=== PATIENT | male | born 1970 | race Caucasian/White ===

== ENCOUNTER 2018-06-07 17:11 | Emergency (ER) | payer SELFPAY ==
[~2018-06-07] VITALS: Ht 193 cm; Wt 113.4 kg
[2018-06-07 17:23] VITALS: BP 157/85
[2018-06-07] MEDS ORDERED: LIDOCAINE WITH 8.4% SOD BICARB 3 ML DISP.SYRIN. INJ ONE (17:45)
[2018-06-07] MEDS ORDERED: NEOMY/BACITR/POLYMYXIN OINT PACKET. TP ONE ×2 (17:45→20:00)
[2018-06-07] MEDS ORDERED: DIPHTH,PERTUSS(ACELL),TET TOX 0.5 ML DISP.SYRIN. VAX IM ONE (17:45)
[2018-06-07] MEDS ORDERED: HYDROcodone/APAP 5/325MG 1 TAB TABLET PO ONE (18:00)
--- NOTE | 2018-06-07 18:31 | RAD ---
PQRS Compliance statement: One or more of the following individualized dose reduction techniques were utilized for this examination: 1. Automated exposure control. 2. Adjustment of the mA and/or kV according to patient size. 3. Use of iterative reconstruction technique. Indication:head injury with LOC TECHNIQUE: CT head without IV contrast COMPARISON:None FINDINGS: No pathologic extra-axial or intra-axial fluid collection. The ventricles and basal cisterns are within normal limits. No acute intracranial bleed. The orbits are within normal limits. Soft tissue injury seen overlying the right zygoma with punctate calcific density likely foreign body. The paranasal sinuses and mastoid air cells are clear. No calvarial fractures. IMPRESSION: 1. No acute intracranial bleed. 2. No calvarial fractures. 3. Soft tissue injury with punctate foreign bodies overlying the right zygoma Electronically signed by: Alvarado Burgess DO (06/07/2018 6:28 PM) [facility]
[2018-06-07] MEDS ORDERED: HYDR-2758 PO (20:07)
[2018-06-07] MEDS ORDERED: CEPH500T PO (20:07)
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
== END 2018-06-07 20:13 | disposition home or self-care (01) ==
LOC: ER 17:11
DX: S05.31XA Ocular laceration without prolapse or loss of intraocular tissue, right eye, initial encounter (principal); S00.81XA Abrasion of other part of head, initial encounter; M54.5 Low back pain; I10 Essential (primary) hypertension; Z90.89 Acquired absence of other organs; Z91.041 Radiographic dye allergy status; Y08.89XA Assault by other specified means, initial encounter; Y93.39 Activity, other involving climbing, rappelling and jumping off; Y92.89 Other specified places as the place of occurrence of the external cause; Y99.8 Other external cause status
CPT/HCPCS: 12013; 70450; 72100; 90471; 90715; 99284

== ENCOUNTER 2018-10-18 14:38 | Observation (INO) | payer SELFPAY ==
[~2018-10-18] VITALS: Ht 193 cm; Wt 112.1 kg
[~2018-10-18 14:38] MED LIST: CEPH500T PO; HYDR-2761 PO
[2018-10-18 15:04] LABS: BASO # 0.1 x10^3/uL (0.0-0.2); BASO % 1 % (0-3); EOS # 0.2 x10^3/uL (0.0-0.7); EOS % 4 % (0-3); HEMATOCRIT 40.9 % (39.0-53.0); HEMOGLOBIN 14.2 g/dL (13.0-17.5); LYMPH # 0.9 x10^3/uL (1.0-4.8); LYMPH % 15 % (24-48); MEAN CORPUSCULAR HEMOGLOBIN 32 pg (25-35); MEAN CORPUSCULAR HGB CONC 35 g/dL (31-37); MEAN CORPUSCULAR VOLUME 93 fL (79-100); MONO # 0.6 x10^3/uL (0.0-1.1); MONO % 10 % (0-9); NEUT # 4.4 x10^3uL (1.8-7.7); NEUT % 70 % (31-73); PLATELET COUNT 225 x10^3/uL (140-400); RED BLOOD COUNT 4.42 x10^6/uL (4.30-5.70); RED CELL DISTRIBUTION WIDTH 15.1 % (11.5-14.5); WHITE BLOOD COUNT 6.2 x10^3/uL (4.0-11.0)
[2018-10-18 15:13] LABS: CALCIUM 8.8 mg/dL (8.5-10.1); CREATININE 0.8 mg/dL (0.7-1.3); GFR 102.7; POTASSIUM 4.3 mmol/L (3.5-5.1)
[2018-10-18 15:16] LABS: PROTHROMBIN TIME PATIENT 11.7 SEC (11.7-14.0)
--- NOTE | 2018-10-18 15:21 | RAD ---
EXAM: Chest, single view. HISTORY: Chest pain. COMPARISON: 09/16/2018 FINDINGS: A frontal view of the chest is obtained. There is no infiltrate, pleural effusion or pneumothorax. The heart is normal in size for portable technique. IMPRESSION: No acute pulmonary finding. Electronically signed by: Mary Kay Ponce MD (10/18/2018 3:17 PM) [facility]
--- NOTE | 2018-10-18 15:32 | EKG ---
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
[2018-10-18] MEDS ORDERED: ONDANSETRON PF 4 MG/2 ML VIAL. IV PRN (16:30)
[2018-10-18] MEDS ORDERED: NITROGLYCERIN SUBLINGUAL 0.4 MG BOTTLE OF 25. SL PRN (16:30)
[2018-10-18] MEDS ORDERED: PHENYTOIN SODIUM EXTENDED 100 MG CAPSULE PO ONE (16:30)
[2018-10-18] MEDS ORDERED: ASPIRIN CHEWABLE 81 MG TABLET. PO ONE (16:30)
[2018-10-18] MEDS ORDERED: MORPHINE SULFATE 4 MG/ML VIAL. IV ONE (16:30)
[2018-10-18] MEDS ORDERED: MORPHINE SULFATE 4 MG/ML VIAL. IV PRN (16:30)
[2018-10-18] MEDS ORDERED: ACETAMINOPHEN 325 MG TABLET. PO PRN (16:30)
[2018-10-18] MEDS ORDERED: NICOTINE 21MG PATCH. TD PRN (16:45)
[2018-10-18] MEDS ORDERED: ACETAMINOPHEN 500 MG TABLET PO PRN (16:45)
[2018-10-18] MEDS ORDERED: GABAPENTIN 300 MG CAPSULE. PO ONE (16:45)
[2018-10-18] MEDS ORDERED: oxyCODONE/APAP 5/325 1 TAB TABLET PO PRN (16:45)
[2018-10-18] MEDS ORDERED: ZOLPIDEM 5 MG TABLET. PO PRN (16:45)
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
[2018-10-18 17:00] VITALS: BP 176/105
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
[2018-10-18 17:06] LABS: PHENY < 0.5 mcg/mL (10.0-20.0)
[2018-10-18 19:50] VITALS: BP 181/93
[2018-10-18] MEDS ORDERED: GABAPENTIN 300 MG CAPSULE. PO SCH (21:00)
--- NOTE | 2018-10-18 22:00 | NUR ---
Paged Dr Noel to clarify observation status. Pt to remain observation at this time per Will monitor.
[2018-10-18] MEDS: GABAPENTIN 300 MG CAPSULE. PO SCH (22:10)
[2018-10-18 22:17] VITALS: BP 151/83
[2018-10-19 01:19] LABS: BARBITURATES NEG (NEG); BENZODIAZEPINES NEG (NEG); CANNABINOIDS NEG (NEG); COCAINE NEG (NEG); METHADONE NEG (NEG); OPIATES POS (NEG); PHENCYCLIDINE NEG (NEG)
[2018-10-19 01:32] LABS: AMPHETAMINE/METHAMPHETAMINE POS (NEG)
[2018-10-19 02:09] VITALS: BP 149/88
[2018-10-19 05:18] LABS: CHOLESTEROL/HDL RATIO 3.7
[2018-10-19 07:00] VITALS: BP 164/89
--- NOTE | 2018-10-19 07:56 | EKG ---
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
[2018-10-19] MEDS: GABAPENTIN 300 MG CAPSULE. PO SCH (08:54)
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
[2018-10-19] MEDS ORDERED: LISINOPRIL 20 MG TABLET PO SCH (09:00)
[2018-10-19] MEDS ORDERED: hydroCHLOROthiazide 12.5 MG CAPSULE PO SCH (09:00)
[2018-10-19 09:04] VITALS: BP 164/89
--- NOTE | 2018-10-19 09:21 | NUR ---
IP: Pt has a hx of + mrsa in thumb and + mrsa screen 09/2015. Pt to be in contact precautions until there are 2 negative mrsa screen and no open wounds.
--- NOTE | 2018-10-19 11:07 | NUR ---
Discharge Note: patient left the unit without notifying staff therefore patient signed AMA paperwork per doctors orders. patient signed and patient given paperwork during morning med pass for the lisinopril and HCTZ which were new to him. patient taken home via [facility] personnel.
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
[2018-10-19] MEDS ORDERED: PHENYTOIN SODIUM EXTENDED 100 MG CAPSULE PO SCH (21:00)
[2018-10-24] MEDS ORDERED: AMLO5TAB7 PO (09:51)
[2018-10-24] MEDS ORDERED: ALBU2.5V8 INH (09:51)
[2018-10-24] MEDS ORDERED: GABA300C18 PO (10:32)
[2018-10-24] MEDS ORDERED: PHEN300C4 PO (10:32)
== END 2018-10-19 11:15 | disposition left against medical advice (07) ==
LOC: ER 14:38 → 2 NORTH 16:20
PROVIDERS: ADMIT Internal Medicine; ATTEND Internal Medicine
DX: I25.10 Atherosclerotic heart disease of native coronary artery without angina pectoris (principal); I10 Essential (primary) hypertension; I25.2 Old myocardial infarction; G40.909 Epilepsy, unspecified, not intractable, without status epilepticus; J44.9 Chronic obstructive pulmonary disease, unspecified; F15.10 Other stimulant abuse, uncomplicated; E78.5 Hyperlipidemia, unspecified; F17.210 Nicotine dependence, cigarettes, uncomplicated; Z91.19 Patient's noncompliance with other medical treatment and regimen; Z90.49 Acquired absence of other specified parts of digestive tract; Z82.49 Family history of ischemic heart disease and other diseases of the circulatory system
CPT/HCPCS: 36415; 71045; 80048; 80061; 80185; 80307; 83880; 84484; 85025; 85610; 85730; 93005; 96374; 99284; G0378; J2270; G0379

== ENCOUNTER 2018-11-01 17:13 | Emergency (ER) | payer SELFPAY ==
[~2018-11-01] VITALS: Ht 193 cm; Wt 122.5 kg
[~2018-11-01 17:13] MED LIST changes: +ALBU2.5V8 INH; +AMLO5TAB7 PO; +GABA300C18 PO; +PHEN300C4 PO
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
[2018-11-01 18:40] LABS: BASO % 1 % (0-3); EOS # 0.3 x10^3/uL (0.0-0.7); EOS % 5 % (0-3); HEMATOCRIT 38.6 % (39.0-53.0); HEMOGLOBIN 13.5 g/dL (13.0-17.5); LYMPH # 1.1 x10^3/uL (1.0-4.8); LYMPH % 20 % (24-48); MEAN CORPUSCULAR HEMOGLOBIN 32 pg (25-35); MEAN CORPUSCULAR HGB CONC 35 g/dL (31-37); MEAN CORPUSCULAR VOLUME 93 fL (79-100); MONO # 0.7 x10^3/uL (0.0-1.1); MONO % 12 % (0-9); NEUT # 3.5 x10^3uL (1.8-7.7); NEUT % 63 % (31-73); PLATELET COUNT 224 x10^3/uL (140-400); RED BLOOD COUNT 4.17 x10^6/uL (4.30-5.70); RED CELL DISTRIBUTION WIDTH 14.5 % (11.5-14.5); WHITE BLOOD COUNT 5.6 x10^3/uL (4.0-11.0)
--- NOTE | 2018-11-01 18:40 | EKG ---
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
[2018-11-01 18:51] LABS: PROTHROMBIN TIME PATIENT 12.5 SEC (11.7-14.0)
[2018-11-01 18:54] LABS: CALCIUM 8.6 mg/dL (8.5-10.1); CREATININE 1.1 mg/dL (0.7-1.3); GFR 71.1; POTASSIUM 4.3 mmol/L (3.5-5.1)
[2018-11-01 19:00] LABS: ALBUMIN 3.3 g/dL (3.4-5.0); ALBUMIN/GLOBULIN RATIO 0.9 (1.0-1.7); MAGNESIUM 1.8 mg/dL (1.8-2.4); TOTAL BILIRUBIN 0.4 mg/dL (0.2-1.0); TOTAL PROTEIN 6.8 g/dL (6.4-8.2)
[2018-11-01 20:01] LABS: BARBITURATES NEG (NEG); BENZODIAZEPINES NEG (NEG); CANNABINOIDS NEG (NEG); COCAINE NEG (NEG); METHADONE NEG (NEG); OPIATES NEG (NEG); PHENCYCLIDINE NEG (NEG)
[2018-11-01 20:02] LABS: AMPHETAMINE/METHAMPHETAMINE POS (NEG)
--- NOTE | 2018-11-01 21:43 | RAD ---
Examination: CHEST PA LATERAL History: ER PATIENT. ATRAUMATIC MIDSTERNAL PAIN. Hx HTN, NO PRIORS Comparison/Correlation: 10/23/2018 portable chest x-ray exam Findings: PA and lateral views of chest were obtained. Heart size and pulmonary vasculature are normal. No infiltrate or significant effusion. Costophrenic angles are not fully included in this may limit assessment. Bony structures are unremarkable for age. Impression: No active disease. Electronically signed by: Yuri Middleton MD (11/01/2018 9:39 PM) [facility]
[2018-11-01] MEDS ORDERED: IBUP-1060 PO (22:03)
[2018-11-01 22:33] VITALS: BP 178/97
--- NOTE | 2018-11-02 05:13 | EKG ---
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
== END 2018-11-01 22:37 | disposition home or self-care (01) ==
LOC: ER 17:13
DX: R07.89 Other chest pain (principal); R06.02 Shortness of breath; R42 Dizziness and giddiness; I10 Essential (primary) hypertension; I25.10 Atherosclerotic heart disease of native coronary artery without angina pectoris; F17.210 Nicotine dependence, cigarettes, uncomplicated; Z90.89 Acquired absence of other organs; Z88.8 Allergy status to other drugs, medicaments and biological substances; Z91.041 Radiographic dye allergy status
CPT/HCPCS: 36415; 71046; 80053; 80307; 82550; 83690; 83735; 83880; 84484; 85025; 85610; 93005; 99284-25

== ENCOUNTER 2019-01-26 20:45 | Observation (INO) | payer SELFPAY ==
[~2019-01-26] VITALS: Ht 182.9 cm; Wt 118.9 kg
[~2019-01-26 20:45] MED LIST changes: +AMLO5TAB10 PO; -AMLO5TAB7 PO; +IBUP-1060 PO
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
[2019-01-26 21:41] LABS: BASO # 0.1 x10^3/uL (0.0-0.2); BASO % 1 % (0-3); EOS # 0.1 x10^3/uL (0.0-0.7); EOS % 1 % (0-3); LYMPH # 1.1 x10^3/uL (1.0-4.8); LYMPH % 15 % (24-48); MEAN CORPUSCULAR HEMOGLOBIN 31 pg (25-35); MEAN CORPUSCULAR HGB CONC 33 g/dL (31-37); MEAN CORPUSCULAR VOLUME 93 fL (79-100); MONO # 0.8 x10^3/uL (0.0-1.1); MONO % 11 % (0-9); NEUT # 5.4 x10^3uL (1.8-7.7); NEUT % 73 % (31-73); PLATELET COUNT 193 x10^3/uL (140-400); RED BLOOD COUNT 4.53 x10^6/uL (4.30-5.70); RED CELL DISTRIBUTION WIDTH 13.6 % (11.5-14.5); WHITE BLOOD COUNT 7.3 x10^3/uL (4.0-11.0)
[2019-01-26 21:52] LABS: CALCIUM 8.8 mg/dL (8.5-10.1); CREATININE 1.1 mg/dL (0.7-1.3); GFR 71.1; POTASSIUM 4.3 mmol/L (3.5-5.1); PROTHROMBIN TIME PATIENT 13.2 SEC (11.7-14.0)
[2019-01-26 21:56] LABS: D-DIMER < 0.27 ug/mlFEU (0.00-0.50)
[2019-01-26 21:58] LABS: ALBUMIN/GLOBULIN RATIO 1.2 (1.0-1.7); TOTAL BILIRUBIN 0.7 mg/dL (0.2-1.0); TOTAL PROTEIN 7.3 g/dL (6.4-8.2)
[2019-01-26] MEDS ORDERED: ASPIRIN CHEWABLE 81 MG TABLET. PO ONE (23:15)
[2019-01-26] MEDS ORDERED: NITROGLYCERIN OINT 1 GM PACKET. TP ONE (23:15)
[2019-01-27 00:58] VITALS: BP 147/73
[2019-01-27] MEDS ORDERED: LISI10TA2 PO (02:27)
[2019-01-27 03:00] VITALS: BP 145/79
[2019-01-27 05:11] LABS: CHOLESTEROL/HDL RATIO 4.5
--- NOTE | 2019-01-27 05:40 | EKG ---
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
[2019-01-27 07:37] VITALS: BP 124/73
--- NOTE | 2019-01-27 07:55 | RAD ---
Single view of the chest. 01/26/2019 9:34 PM Indication: Shortness of breath Comparison: Chest radiograph November 01, 2018 Findings: There is no focal consolidation. There is no pleural effusion or pneumothorax. The cardiomediastinal silhouette and pulmonary vasculature are within normal limits. No acute osseous abnormalities are seen. Impression: No evidence of acute cardiopulmonary process. Electronically signed by: Vick Farooq MD (01/27/2019 7:53 AM) [id number]
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
--- NOTE | 2019-01-27 09:30 | PDOC2 ---
RUDI ROMERO CORN SHREDDER 01/27/19 0930: CARDIAC CONSULT DATE OF CONSULT Date of Consult DATE: 01/27/19 TIME: 09:26 REASON FOR CONSULT Reason for Consult: Chest pain REFERRING PHYSICIAN Referring Physician: Dr. Herndon SOURCE Source: Patient HISTORY OF PRESENT ILLNESS HISTORY OF PRESENT ILLNESS This is a 48 yo female who presented secondary to chest pain. Patient [facility] facility. Was at home playing horseshoes. Began having pain in his central chest. Radiated to his left arm. Describes as pressure and occasionally sharp in nature. Sometimes worse with applying pressure to the chest. Associated with dizziness and nausea. Reports pain has been somewhat constant, although better now. No recent illness/fevers, palpitations, SOA, LE edema, or orthopnea. Was seen by our service earlier this year for similar complaints. Underwent echo, which showed normal LV systolic function. Patient was recommend to have outpatient stress testing, but unfortunately failed to follow up. H/o cocaine and marijuana use, patient reports he has been clean since October. Has not been compliant with any medications for > 1 year. PAST MEDICAL HISTORY Cardiovascular: CAD, HTN Pulmonary: No pertinent hx CENTRAL NERVOUS SYSTEM: Other (no pertinent hx) GI: No pertinent hx Heme/Onc: No pertinent hx Hepatobiliary: Hep A/B/C (C) Psych: No pertinent hx, Schizophrenia Musculoskeletal: Other (no pertinent hx) Rheumatologic: No pertinent hx Infectious disease: No pertinent hx ENT: No pertinent hx Renal/: No pertinent hx Endocrine: No pertinent hx Dermatology: No pertinent hx PAST SURGICAL HISTORY Past Surgical History angioplasty at [facility] 3 years ago-no stent, appendectomy FAMILY HISTORY Family History: Diabetes, Stroke SOCIAL HISTORY Smoke: <1 pack per day ALCOHOL: none Drugs: Marijuana Lives: Roommate (rehab) CURRENT MEDICATIONS CURRENT MEDICATIONS Current Medications Medications (Trade) Dose Ordered Sig/Dahiana Route PRN Reason Start Time Stop Time Status Last Admin Dose Admin Nitroglycerin (Nitro-Bid Oint) 1 inch 1X ONCE TP 01/26/19 23:15 01/26/19 23:16 DC 01/26/19 23:15 Aspirin (Children'S Aspirin) 324 mg 1X ONCE PO 01/26/19 23:15 01/26/19 23:16 DC 01/26/19 23:24 ALLERGIES ALLERGIES: Coded Allergies: celecoxib (Verified Allergy, Intermediate, HIVES, 09/16/18) I S O L A T I O N *CONTACT* (Verified Allergy, Unknown, 10/01/15) mrsa + ROS Review of System 14 point ROS conducted with pertinent positives noted above in HPI. PHYSICAL EXAM General: Alert, Oriented X3, Cooperative, No acute distress HEENT: Atraumatic, Mucous membr. moist/pink Lungs: Clear to auscultation, Normal air movement Heart: Regular rate, Normal S1, Normal S2 Abdomen: Soft, No tenderness Extremities: No edema, Normal pulses Neuro: Normal speech, Sensation intact Psych/Mental Status: Mental status NL, Mood NL MUSCULOSKELETAL: No deformity VITALS VITALS Vital Signs Date Time Temp Pulse Resp B/P (MAP) Pulse Ox O2 Delivery O2 Flow Rate FiO2 01/27/19 07:37 97.8 68 18 124/73 (90) 97 Room Air 97.8 LABS Lab: Laboratory Tests Test 01/26/19 21:15 01/27/19 01:55 01/27/19 04:45 White Blood Count 7.3 x10^3/uL (4.0-11.0) Red Blood Count 4.53 x10^6/uL (4.30-5.70) Hemoglobin 14.0 g/dL (13.0-17.5) Hematocrit 42.0 % (39.0-53.0) Mean Corpuscular Volume 93 fL (79-100) Mean Corpuscular Hemoglobin 31 pg (25-35) Mean Corpuscular Hemoglobin Concent 33 g/dL (31-37) Red Cell Distribution Width 13.6 % (11.5-14.5) Platelet Count 193 x10^3/uL (140-400) Neutrophils (%) (Auto) 73 % (31-73) Lymphocytes (%) (Auto) 15 % (24-48) Monocytes (%) (Auto) 11 % (0-9) Eosinophils (%) (Auto) 1 % (0-3) Basophils (%) (Auto) 1 % (0-3) Neutrophils # (Auto) 5.4 x10^3uL (1.8-7.7) Lymphocytes # (Auto) 1.1 x10^3/uL (1.0-4.8) Monocytes # (Auto) 0.8 x10^3/uL (0.0-1.1) Eosinophils # (Auto) 0.1 x10^3/uL (0.0-0.7) Basophils # (Auto) 0.1 x10^3/uL (0.0-0.2) Prothrombin Time 13.2 SEC (11.7-14.0) Prothromb Time International Ratio 1.0 (0.8-1.1) D-Dimer (Katelynn) < 0.27 ug/mlFEU Sodium Level 141 mmol/L (136-145) Potassium Level 4.3 mmol/L (3.5-5.1) Chloride Level 103 mmol/L (98-107) Carbon Dioxide Level 29 mmol/L (21-32) Anion Gap 9 (6-14) Blood Urea Nitrogen 17 mg/dL (8-26) Creatinine 1.1 mg/dL (0.7-1.3) Estimated GFR (Cockcroft-Gault) 71.1 BUN/Creatinine Ratio 15 (6-20) Glucose Level 114 mg/dL (70-99) Calcium Level 8.8 mg/dL (8.5-10.1) Total Bilirubin 0.7 mg/dL (0.2-1.0) Aspartate Amino Transf (AST/SGOT) 15 U/L (15-37) Alanine Aminotransferase (ALT/SGPT) 20 U/L (16-63) Alkaline Phosphatase 116 U/L (46-116) Troponin I Quantitative 0.034 ng/mL (0.000-0.055) 0.019 ng/mL (0.000-0.055) 0.025 ng/mL (0.000-0.055) Total Protein 7.3 g/dL (6.4-8.2) Albumin 4.0 g/dL (3.4-5.0) Albumin/Globulin Ratio 1.2 (1.0-1.7) Triglycerides Level 104 mg/dL (0-150) Cholesterol Level 159 mg/dL (0-200) LDL Cholesterol, Calculated 103 mg/dL (0-100) VLDL Cholesterol, Calculated 21 mg/dL (0-40) Non-HDL Cholesterol Calculated 124 mg/dL (0-129) HDL Cholesterol 35 mg/dL (40-60) Cholesterol/HDL Ratio 4.5 ECHOCARDIOGRAM ECHOCARDIOGRAM <Conclusion> The left ventricular systolic function is low normal. The Ejection Fraction is 50%. Trace mitral regurgitation. Trace tricuspid regurgitation. There is no evidence of significant pericardial effusion. DATE: 09/16/18 1253 ASSESSMENT/PLAN ASSESSMENT/PLAN 1. Chest pain, atypical. AMI ruled out. Echo 10/30 with LVEF 50%. Reports angioplasty 2-3 years ago at , no stents. Repeat echo shows LVEF 55-60% and no WMA. 2. Hypertension; elevated. 4. Substance abuse history; UDS negative Recommendations Agree with lisinopril for BP control Add ASA May discharge from a CV standpoint Will plan for outpatient ischemic evaluation AASHISH CLARKE MD 01/27/19 1655: CARDIAC CONSULT ASSESSMENT/PLAN ASSESSMENT/PLAN Patient seen and examined. Agree with [facility] COORD[facility]ATOR's assessment and plan. Chest pain with atypical features and most probably musculoskeletal Myocardial infarction has been ruled out 2-D echo showed normal LV function without any wall motion abnormalities Blood pressure better controlled since admission Plan outpatient ischemic evaluation Thank you for your consultation RUDI ROMERO APRN Jan 27, 2019 09:30 AASHISH CLARKE MD Jan 27, 2019 16:55
--- NOTE | 2019-01-27 09:34 | NUR ---
IP: Pt has a hx of + mrsa screen and + mrsa in thumb wound in 2014. Pt to be in contact precautions until there are 2 negative screens 7 days apart and no open wounds.
[2019-01-27] MEDS ORDERED: LIDO:MAALOX 1:1 20 ML SINGLE DOSE. PO PRN (09:45)
[2019-01-27] MEDS ORDERED: amLODIPine BESYLATE 5 MG TABLET PO SCH (10:00)
[2019-01-27] MEDS ORDERED: LISINOPRIL 10 MG TABLET PO SCH (10:30)
[2019-01-27] MEDS ORDERED: ALBUTEROL SULFATE 2.5 MG/3 ML NEBU. INH PRN (10:30)
--- NOTE | 2019-01-27 10:57 | CARD ---
MR#: [id number] Date of Study: 01/27/2019 Ordering Physician: RUDI ROMERO, Referring Physician: KELLY FERRER Tech: Carmencita Park RDCS APPROVED REPORT EXAM: Two-dimensional and M-mode echocardiogram with Doppler and color Doppler. Other Information Quality : AverageHR: 50bpm Rhythm : Bradycardia INDICATION Chest Pain RISK FACTORS Obesity Smoking 2D DIMENSIONS RVDd3.0 (2.9-3.5cm)Left Atrium(2D)3.7 (1.6-4.0cm) IVSd1.6 (0.7-1.1cm)Aortic Root(2D)3.1 (2.0-3.7cm) LVDd4.8 (3.9-5.9cm)LVOT Diameter2.0 (1.8-2.4cm) PWd1.1 (0.7-1.1cm)IVSs1.7 (0.8-1.2cm) LVDs3.3 (2.5-4.0cm)FS (%) 30.3 % PWs1.5 (0.8-1.2cm)SV61.3 ml LVEF(%)57.6 (>50%) M-Mode DIMENSIONS Left Atrium(MM)3.59 (2.5-4.0cm)Aortic Root3.48 (2.2-3.7cm) Aortic Valve AoV Peak Maximino.125.9cm/sAoV VTI23.5cm AO Peak GR.6.3mmHgLVOT Peak Maximino.103.2cm/s LVOT VTI 22.98cmAO Mean GR.4mmHg ELDA (VMAX)2.04rn4ZAV (VTI)3.01cm2 Mitral Valve MV E Fwguwzwm70.5cm/sMV DECEL [id number] MV A Theltmut36.2cm/sMV [id number] E/A Ratio1.0MVA (PHT)3.66cm2 TDI E/Medial E'8.4 Pulmonary Valve PV Peak Mfvffdzz25.2cm/sPV Peak Grad.2mmHg LEFT VENTRICLE The left ventricle is normal size. There is moderate concentric left ventricular hypertrophy. The lef t ventricular systolic function is normal. The Ejection Fraction is 55-60%. There is normal LV segmen gopi wall motion. Transmitral Doppler flow pattern is Grade II-pseudonormal filling dynamics. RIGHT VENTRICLE The right ventricle is normal size. There is normal right ventricular wall thickness. The right ventr icular systolic function is normal. ATRIA The left atrium size is normal. The right atrium size is normal. The interatrial septum is intact wit h no evidence for an atrial septal defect or patent foramen ovale as noted on 2-D or Doppler imaging. AORTIC VALVE The aortic valve is normal in structure and function. The aortic valve is trileaflet. Doppler and Col or Flow revealed no significant aortic regurgitation. There is no significant aortic valvular stenosi s. MITRAL VALVE The mitral valve is normal in structure and function. There is no evidence of mitral valve prolapse. There is no mitral valve stenosis. Doppler and Color-flow revealed trace mitral regurgitation. TRICUSPID VALVE The tricuspid valve is normal in structure and function. Doppler and Color Flow revealed no tricuspid valve regurgitation noted. There is no tricuspid valve prolapse or vegetation. There is no tricuspid valve stenosis. PULMONIC VALVE The pulmonic valve is not well visualized. GREAT VESSELS The aortic root is normal in size. The ascending aorta is normal in size. The IVC is normal in size a nd collapses >50% with inspiration. PERICARDIAL EFFUSION There is no evidence of significant pericardial effusion. Critical Notification Critical Value: No <Conclusion> The left ventricular systolic function is normal. The Ejection Fraction is 55-60%. There is normal LV segmental wall motion. Doppler and Color-flow revealed trace mitral regurgitation. There is no evidence of significant pericardial effusion. Signed by : Shaan Red, Electronically Approved : 01/27/2019 10:57:08
--- NOTE | 2019-01-27 11:18 | NUR ---
SS following for discharge planning. SS reviewed pt chart. Pt is from home and is currently on room air. Pt has a history of substance abuse and receives services through [facility]. Yoni from the PAT team came to assess pt and notified SS that pt is safe to discharge to home and follow up with outpatient services. No discharge needs noted at this time. SS will continue to follow for pending discharge needs.
[2019-01-27 11:22] VITALS: BP 144/84
[2019-01-27] MEDS: GABAPENTIN 300 MG CAPSULE. PO SCH ×2 (12:12→16:01)
[2019-01-27 12:33] LABS: BARBITURATES NEG (NEG); BENZODIAZEPINES NEG (NEG); CANNABINOIDS NEG (NEG); COCAINE NEG (NEG); METHADONE NEG (NEG); OPIATES NEG (NEG); PHENCYCLIDINE NEG (NEG)
[2019-01-27 12:38] LABS: AMPHETAMINE/METHAMPHETAMINE NEG (NEG)
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
[2019-01-27] MEDS ORDERED: PHEN300C4 PO (14:07)
[2019-01-27] MEDS ORDERED: GABA300C18 PO (14:07)
[2019-01-27 14:50] VITALS: BP 117/51
[2019-01-27] MEDS ORDERED: ASPIRIN ENTERIC COATED 81 MG TABLET.DR. PO SCH (16:15)
--- NOTE | 2019-01-27 16:33 | NUR ---
PT RETURNED TO [facility]
--- NOTE | 2019-01-27 18:06 | NUR ---
pt returned to Rehab and all discharge instructions give o pt at the time of discharge,
[2019-01-27] MEDS ORDERED: PHENYTOIN SODIUM EXTENDED 100 MG CAPSULE PO SCH (21:00)
== END 2019-01-27 17:30 ==
LOC: ER 20:45 → 2 NORTH 23:00
PROVIDERS: ADMIT Internal Medicine; ATTEND Internal Medicine
DX: R07.2 Precordial pain (principal); I25.10 Atherosclerotic heart disease of native coronary artery without angina pectoris; I10 Essential (primary) hypertension; B15.9 Hepatitis A without hepatic coma; F12.90 Cannabis use, unspecified, uncomplicated; I25.2 Old myocardial infarction; F17.210 Nicotine dependence, cigarettes, uncomplicated; Z82.3 Family history of stroke; Z82.49 Family history of ischemic heart disease and other diseases of the circulatory system; Z90.49 Acquired absence of other specified parts of digestive tract; Z83.3 Family history of diabetes mellitus; Z91.19 Patient's noncompliance with other medical treatment and regimen; B19.20 Unspecified viral hepatitis C without hepatic coma; F14.90 Cocaine use, unspecified, uncomplicated; R56.9 Unspecified convulsions
CPT/HCPCS: 36415; 71045; 80053; 80061; 80307; 84484; 85025; 85379; 85610; 87641; 93005; 93306; 99284; G0378; G0379

== ENCOUNTER 2019-01-27 19:40 | Inpatient (IN) | payer SELFPAY ==
[~2019-01-27] VITALS: Ht 193 cm; Wt 104.5 kg
[~2019-01-27 19:40] MED LIST changes: +LISI10TA2 PO
[2019-01-27] MEDS ORDERED: ASPIRIN 325 MG TABLET PO ONE (19:45)
[2019-01-27] MEDS ORDERED: IV NORMAL SALINE 1000ML BAG 1,000 ML IV ONE (20:00)
[2019-01-27] MEDS ORDERED: ONDANSETRON PF 4 MG/2 ML VIAL. IV ONE (20:00)
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
[2019-01-27 20:20] LABS: BASO % 1 % (0-3); EOS # 0.2 x10^3/uL (0.0-0.7); EOS % 3 % (0-3); HEMATOCRIT 38.7 % (39.0-53.0); HEMOGLOBIN 13.1 g/dL (13.0-17.5); LYMPH % 16 % (24-48); MEAN CORPUSCULAR HEMOGLOBIN 31 pg (25-35); MEAN CORPUSCULAR HGB CONC 34 g/dL (31-37); MEAN CORPUSCULAR VOLUME 92 fL (79-100); MONO # 0.8 x10^3/uL (0.0-1.1); MONO % 13 % (0-9); NEUT # 4.1 x10^3uL (1.8-7.7); NEUT % 67 % (31-73); PLATELET COUNT 162 x10^3/uL (140-400); RED BLOOD COUNT 4.22 x10^6/uL (4.30-5.70); RED CELL DISTRIBUTION WIDTH 13.4 % (11.5-14.5)
[2019-01-27 20:33] LABS: CALCIUM 8.4 mg/dL (8.5-10.1); CREATININE 1.3 mg/dL (0.7-1.3); GFR 58.7; POTASSIUM 4.2 mmol/L (3.5-5.1)
[2019-01-27 20:35] LABS: PROTHROMBIN TIME PATIENT 13.4 SEC (11.7-14.0)
[2019-01-27 20:38] LABS: ALBUMIN 3.3 g/dL (3.4-5.0); ALBUMIN/GLOBULIN RATIO 1.1 (1.0-1.7); MAGNESIUM 1.8 mg/dL (1.8-2.4); TOTAL BILIRUBIN 0.3 mg/dL (0.2-1.0); TOTAL PROTEIN 6.4 g/dL (6.4-8.2)
[2019-01-27] MEDS ORDERED: IOHEXOL 350 MG/ML 100 ML VIAL. IV ONE (20:45)
[2019-01-27] MEDS ORDERED: CONTRAST GIVEN. MC PRN (20:45)
--- NOTE | 2019-01-27 21:28 | RAD ---
CT angiogram of the chest with contrast: Reason for examination: Chest pain. Helical images were obtained through the chest with intravenous administration of 90 cc Omnipaque 350 using PE protocol. 3-D MIPS reconstruction was performed in sagittal and coronal planes. Exposure: One or more of the following individualized dose reduction techniques were utilized for this examination: 1. Automated exposure control 2. Adjustment of the mA and/or kV according to patient size 3. Use of iterative reconstruction technique. No abnormality seen at the thyroid gland. The trachea and mainstem bronchi show no intraluminal lesions. No abnormality seen at the esophagus. The thoracic aorta is shows no aneurysmal dilatation or dissection. The heart size is normal with no pericardial effusion. There is no evidence of pulmonary embolus. There are some minimal bullous changes in the apices. No acute infiltrates or pleural effusions are seen. No pneumothorax is evident. No abnormalities are seen at the visualized portion of the liver, spleen or adrenal glands. Gallbladder is contracted however the patient has a large amount of gastric content within the stomach and has not been nothing by mouth. No acute bony abnormalities are seen. IMPRESSION: No evidence of pulmonary embolus. A few small apical bulla are present. Contracted gallbladder however the patient has not been nothing by mouth. No other abnormality seen in the chest. Electronically signed by: Elsie Mcguire MD (01/27/2019 9:26 PM) [facility]
[2019-01-27] MEDS ORDERED: ONDANSETRON PF 4 MG/2 ML VIAL. IV PRN (22:15)
--- NOTE | 2019-01-27 23:20 | NUR ---
Admit from ED via WC. A/O x 4. Anxious. Steady Gait. Patient just discharged from [facility] this evening for Dx of Chest pain. Patient was discharged to [facility] for Hx of drug abuse. Patient was to follow up for out-patient stress test. Patient reports he 'got some bad news today" that caused his chest pain to return. Brought back to [facility] ED via EMS. Admit for possible stress test to be done in-patient tomorrow. Orientated patient to POC to include lab draws, possible stress test and NPO after midnight. Orientated to room and call light. Verbalized understanding. Patient requesting "sandwich" on arrival to floor. VSS.
[2019-01-27 23:30] VITALS: BP 134/78
[2019-01-28] VITALS (10 sets, daily range): BP systolic 106–130; BP diastolic 53–82
--- NOTE | 2019-01-28 00:53 | NUR ---
Patient restless. Pacing in room. Wanting snacks but is NPO. Patient request "something to help rest". Gave Ativan 0.5mg IVP as ordered prn agitation.
--- NOTE | 2019-01-28 01:47 | NUR ---
Continues to be restless. Pacing in halls. Wants to take a shower. Helped patient set up for shower.
--- NOTE | 2019-01-28 06:22 | EKG ---
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
[2019-01-28] MEDS ORDERED: amLODIPine BESYLATE 5 MG TABLET PO SCH (10:00)
[2019-01-28] MEDS ORDERED: LISINOPRIL 10 MG TABLET PO SCH (10:01)
[2019-01-28] MEDS ORDERED: ALBUTEROL SULFATE 2.5 MG/3 ML NEBU. INH PRN (10:15)
[2019-01-28] MEDS ORDERED: busPIRone 5 MG TABLET. PO PRN (10:15)
[2019-01-28] MEDS ORDERED: ASPIRIN ENTERIC COATED 81 MG TABLET.DR. PO SCH (12:00)
[2019-01-28] MEDS: GABAPENTIN 300 MG CAPSULE. PO SCH ×2 (12:45→21:03)
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
--- NOTE | 2019-01-28 12:58 | CARD ---
MR#: [id number] Date of Study: 01/28/2019 Ordering Physician: RUDI ROMERO, Referring Physician: FAZAL SHAY, Tech: [place]ita [place] RDCS APPROVED REPORT INDICATION Chest Pain RISK FACTORS Smoking Reason : Patient complained of pain PROCEDURE The patient underwent an Exercise Stress Test using the Dougie Protocol. Blood pressure, heart rate, a nd EKG were monitored. An Echocardiogram was performed by household appliances service technician in four stages in quad fashion. At peak stress four se lected images were obtained and placed side by side with resting images for comparison. STRESS ECHO FINDINGS The resting Echocardiogram showed normal left ventricular systolic contractility with an estimated Ej ection Fraction of about 60 %. The Resting Echocardiogram showed normal augmentation of myocardial wall segments using a 16 segment model. The Stress Echocardiogram showed normal augmentation of myocardial wall segments using a 16 segment m jessica. The Stress Echocardiogram left ventricular systolic contractility has an estimated Ejection Fraction of about 70%. Test Type: Exercise Stress Nurse/Tech: Seble Bean R.N. Test Indications: chest pain Cardiac History and Allergies: see ehr Medications: see ehr Medical History: see ehr Resting ECG: sr Resting Heart Rate: 66 bpm Resting Blood Pressure: 125/77mmHg Pretest Chest Pain: No chest pain Nurse/Tech Notes lungs cta, heart tones regular Stress Symptoms chest pain during second stage, pt unable to reach target POST EXERCISE Reason for Termination: Chest pain, Patient request Target HR: No Max HR: 128 bpm 75% of Maximum Predicted HR: 145 bpm Exercise duration: 5:14 min:sec, 2 Stage Exercise capacity: 7.0METs Max Blood Pressure: 180/84mmHg Blood Pressure response to exercise: Normal blood pressure response during stress. Heart Rate response to exercise: normal Chest Pain: Yes. Pain started in stage 2 6/10- improved with rest to 4/10 Arrhythmia: No. ST Change: Yes. ST depression in II III avf, V4-6, started in Stage 2 but deepened during recovery, d id not fully recover to baseline STRESS ECG Stress EKG shows no significant changes. Preliminary Notification Critical Value: No <Conclusion> Normal resting and stress EKG. No ischemia noted. Average exercise capacity. Normal resting wall motion and EF at 55% Stress wall motion and EF is grossly normal. (Stress images obtained at less than 85% APMHR, decreasi ng specificity of the study, but within these limitations, no ischemia noted) Signed by : Shawn Santizo, Electronically Approved : 01/28/2019 12:57:50
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
--- NOTE | 2019-01-28 14:00 | NUR ---
SS following up with discharge planning. Discharge order received. SS phoned and faxed clinical to [employer] ; fax [phone]. [facility] ready to accept back. Pt will discharge today and return to [facility] at [address] [place] [address], at 1500 via [facility] transport. Pt's RN notified.
[2019-01-28 14:20] LABS: BARBITURATES NEG (NEG); BENZODIAZEPINES NEG (NEG); CANNABINOIDS NEG (NEG); COCAINE NEG (NEG); METHADONE NEG (NEG); OPIATES NEG (NEG); PHENCYCLIDINE NEG (NEG)
[2019-01-28] MEDS ORDERED: LIDOCAINE 1% Multi-Dose 20 ML VIAL. ONE (14:20)
[2019-01-28] MEDS ORDERED: IODIXANOL 320 MG/ML 100 ML VIAL. ONE (14:20)
[2019-01-28 14:22] LABS: AMPHETAMINE/METHAMPHETAMINE NEG (NEG)
[2019-01-28] MEDS ORDERED: IODIXANOL 320 MG/ML 100 ML VIAL. IART ONE (14:30)
[2019-01-28] MEDS ORDERED: LIDOCAINE 1% Multi-Dose 20 ML VIAL. INJ ONE (14:30)
[2019-01-28] MEDS ORDERED: fentaNYL PF VIAL 100 MCG/2 ML VIAL IV ONE (14:30)
[2019-01-28] MEDS ORDERED: MIDAZOLAM HCL/PF 2 MG/2 ML VIAL. IV ONE (14:30)
--- NOTE | 2019-01-28 14:40 | NUR ---
SS following up with discharge planning. Pt's RN contacted SS and reported that discharge is cancelled due to pt needing heart cath. SS contacted [facility] and transportation and notified.
[2019-01-28] MEDS ORDERED: CONTRAST GIVEN. MC PRN (14:45)
--- NOTE | 2019-01-28 15:31 | NUR ---
Nursing: Patient's stress test appeared normal and planning for discharge today. IV's were removed along with telemetry. Then received a call from cardiology notifying me that the patient was unable to complete stress test and was having chest pain during exam. Cardiac cath scheduled. IV initiated and telemetry re-applied.
[2019-01-28] MEDS ORDERED: MIDAZOLAM HCL/PF 2 MG/2 ML VIAL. ONE (16:16)
--- NOTE | 2019-01-28 17:41 | CARD ---
MR#: [id number] Date of Study: 01/28/2019 Ordering Physician: AASHISH CLARKE, Referring Physician: FAZAL SHAY, Tech: RT [place] (R) ROSALBA APPROVED REPORT Technologist: RT [place] (R) ROSALBA Nurse: Radha Linton RN Procedure(s) performed: Dose 34.0942 Gycm2 Fluoro Time 1.5 Minutes Contrast 43 cc's Moderate Sedation 30 minutes [facility], Coronary angiography HISTORY The patient is a 48 year-old male with a history of : hypertension. INDICATION The indication(s) include : unstable angina . CSHA Clinical Frailty Scale CSHA Clinical Frailty Scale: Well Heart Failure Heart Failure: No PROCEDURE NARRATIVE After explaining the risks and benefits of the procedure and alternatives, informed consent was obtai tona. The patient was brought electively to the cardiac catheterization lab in a fasting state. A jasper eout was performed confirming the patient's name, date of , procedure, and site of procedure. A ll necessary personnel were wearing the appropriate protective equipment and radiation monitor device s. (See nursing notes for medications administered). The right groin was sterilely prepped and drap ed in the usual fashion. The right groin was infiltrated with 10 mL of 2% lidocaine for subcutaneous anesthesia. A 6 F sheath was inserted into the right femoral artery without difficulty. Right and left coronary angiography was performed using a JR4 and JL4 catheter. Left ventricular end diastolic pressure was obtained with a pigtail catheter and pullback was performed after left ventriculography . All catheter exchanges and advancements were performed over a guidewire. At case completion the r ight femoral sheath was removed and hemostasis was achieved with an Angioseal Device after limited fe moral angiography confirmed adequate vessel size and anatomy. There were no acute complications. HEMODYNAMICS: AO: 150/80 LVEDP 12 mm Hg No gradient on LV to aortic pullback. LEFT VENTRICULOGRAM: Deferred due to normal EF by echo. CORONARY ANGIOGRAPHY: LM is a large caliber vessel with normal angiographic appearance. LAD is a large caliber vessel with a mid eccentric calcified 40-50% stenosis. D1 is a small caliber vessel with normal angiographic appearance. Ramus is a small caliber vessel with normal angiographic appearance. LCx is a moderate caliber non-dominant vessel with mild luminal irregularities. OM1 is a moderate caliber vessel with normal angiographic appearance. RCA is a large caliber dominant vessel with normal angiographic appearance. RPDA is a moderate caliber vessels with normal angiographic appearance. Conclusion 1. Normal LVEDP 2. One vessel mild to moderate CAD involving the LAD. Recommendations Aggressive Medical Therapy Signed by : Shawn Santizo, Electronically Approved : 01/28/2019 17:40:13
[2019-01-28] MEDS ORDERED: PHENYTOIN SODIUM EXTENDED 100 MG CAPSULE PO SCH (21:00)
--- NOTE | 2019-01-28 21:45 | NUR ---
Pt used call light, spoke with this nurse. Patient is wanting to leave the hospital tonight. He does not want to stay any longer, states he wants to be outside and smoke. I reiterated him again at this time like I did in beginning of shift that the hospital is a non smoking campus. Pt wants to leave then. I contacted hospitalist employee relations representative at [phone] who stated that since he did not see the patient today he can not do a proper discharge and the patient will have to sign AMA papers if he wishes to leave. I told the patient this, he wishes to proceeded and sign AMA papers. Pt declined nicotine gum or patches, also declined prn anxiety medication as possible solutions to him wanting to leave, denied that there was anything further staff could do to help him be more comfortable or want to stay. also informed pt is leaving AMA at this time. Nursing concrete stone fabricating supervisor Valerie informed who arranged a cab pass for patient. Pt tele monitor dcd, PIV dcd. Right groin checked one more time and is clean and soft, no swelling, distal pulse 2+ strong. Cath discharge paperwork given to patient and explained to patient. Activity restrictions following a cath in the groin were reviewed, with pt verbalizing understanding. Pt escorted in wheelchair by this RN and security guard to ER, cab was already waiting. Pt taken to cab on curb with his belongings at approximately 2215.
== END 2019-01-28 22:15 | disposition left against medical advice (07) | DRG 287 ==
LOC: ER 19:40 → 2 SOUTH 22:00 → OBSVTOIN 01-28 14:35
PROVIDERS: ADMIT Internal Medicine; ATTEND Internal Medicine
PROC: 4A023N7 Measurement of Cardiac Sampling and Pressure, Left Heart, Percutaneous Approach (ICD-10-PCS; principal; 2019-01-28)
PROC: B2111ZZ Fluoroscopy of Multiple Coronary Arteries using Low Osmolar Contrast (ICD-10-PCS; 2019-01-28)
DX: I25.110 Atherosclerotic heart disease of native coronary artery with unstable angina pectoris (principal); R07.89 Other chest pain; F41.9 Anxiety disorder, unspecified; I10 Essential (primary) hypertension; Z53.21 Procedure and treatment not carried out due to patient leaving prior to being seen by health care provider; I25.2 Old myocardial infarction; Z90.49 Acquired absence of other specified parts of digestive tract; Z79.899 Other long term (current) drug therapy; Z88.8 Allergy status to other drugs, medicaments and biological substances; Z86.14 Personal history of Methicillin resistant Staphylococcus aureus infection; Z87.820 Personal history of traumatic brain injury; Z82.3 Family history of stroke; Z83.3 Family history of diabetes mellitus; Z72.0 Tobacco use
CPT/HCPCS: 93458; 99285; G0269; 36415; 71275; 80053; 80307; 82553; 83690; 83735; 83880; 84484; 85025; 85610; 85730; 93005; 93017; 93350; 96361; 96374; 96375; 99152; 99153; C1760; C1769; C1892; G0378; G0379; J1644; J2060; J2250; J2405; J3010; J7030; Q9967; C1771

== ENCOUNTER 2019-02-01 03:54 | Emergency (ER) | payer SELFPAY ==
[~2019-02-01] VITALS: Ht 182.9 cm; Wt 104.3 kg
[2019-02-01 04:00] VITALS: BP 135/72
[2019-02-01 05:11] LABS: BASO # 0.1 x10^3/uL (0.0-0.2); BASO % 1 % (0-3); EOS # 0.3 x10^3/uL (0.0-0.7); EOS % 4 % (0-3); HEMATOCRIT 31.8 % (39.0-53.0); HEMOGLOBIN 10.7 g/dL (13.0-17.5); LYMPH # 1.2 x10^3/uL (1.0-4.8); LYMPH % 19 % (24-48); MEAN CORPUSCULAR HEMOGLOBIN 31 pg (25-35); MEAN CORPUSCULAR HGB CONC 34 g/dL (31-37); MEAN CORPUSCULAR VOLUME 92 fL (79-100); MONO % 16 % (0-9); NEUT # 3.8 x10^3uL (1.8-7.7); NEUT % 60 % (31-73); PLATELET COUNT 159 x10^3/uL (140-400); RED BLOOD COUNT 3.46 x10^6/uL (4.30-5.70); RED CELL DISTRIBUTION WIDTH 13.8 % (11.5-14.5); WHITE BLOOD COUNT 6.4 x10^3/uL (4.0-11.0)
[2019-02-01 05:23] LABS: CALCIUM 8.4 mg/dL (8.5-10.1); CREATININE 0.9 mg/dL (0.7-1.3); GFR 89.7; POTASSIUM 3.5 mmol/L (3.5-5.1)
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
[2019-02-01 05:28] LABS: ALBUMIN 3.4 g/dL (3.4-5.0); ALBUMIN/GLOBULIN RATIO 1.1 (1.0-1.7); MAGNESIUM 2.1 mg/dL (1.8-2.4); TOTAL BILIRUBIN 0.8 mg/dL (0.2-1.0); TOTAL PROTEIN 6.4 g/dL (6.4-8.2)
--- NOTE | 2019-02-01 06:40 | EKG ---
[facility] [address] [place] [address] Test Date: 2019-02-01 Test Time: 04:01:24 Pat Name: SATNAM GREEN Department: Room: Gender: M Shampooer: : 1970 Requested By: RAE CUNHA Order Number: [id number] Reading MD: Gabriel Corado Measurements Intervals [place] Rate: 92 P: 45 VT: 172 QRS: 75 QRSD: 94 T: 49 QT: 382 QTc: 478 Interpretive Statements SINUS RHYTHM QRS(T) CONTOUR ABNORMALITY CONSIDER INFERIOR MYOCARDIAL DAMAGE PROLONGED QT Electronically Signed On 02-07-2019 11:29:43 CDT by Gabriel Corado
--- NOTE | 2019-02-01 07:49 | RAD ---
Examination: PORTABLE CHEST 1V History: chest pain Comparison/Correlation: 01/26/2019 portable chest x-ray exam, 01/27/2019 CTA of the chest Findings: Portable upright frontal view of the chest was obtained. Costophrenic angles are not fully included. Heart size and bony vasculature are normal. No infiltrate. No pneumothorax. No definite or significant pleural effusion. Bony structures are unremarkable. Impression: No active disease. Electronically signed by: Yuri Middleton MD (02/01/2019 7:46 AM) [facility]
== END 2019-02-01 06:15 | disposition home or self-care (01) ==
LOC: ER 03:54
DX: R07.89 Other chest pain (principal); I25.10 Atherosclerotic heart disease of native coronary artery without angina pectoris; I10 Essential (primary) hypertension; I25.2 Old myocardial infarction; Z86.14 Personal history of Methicillin resistant Staphylococcus aureus infection; Z87.820 Personal history of traumatic brain injury; Z91.041 Radiographic dye allergy status; Z88.8 Allergy status to other drugs, medicaments and biological substances
CPT/HCPCS: 36415; 71045; 80053; 83735; 84484; 85025; 93005; 99285-25